=== PATIENT | female | born 2005 | race African-American/Black ===

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

== ENCOUNTER 2023-07-31 16:30 | Emergency (ER) | payer MEDICAID, OTHER ==
[~2023-07-31] VITALS: Ht 165.1 cm; Wt 60.0 kg
[2023-07-31 16:34] VITALS: O2SAT 99
[2023-07-31] MEDS ORDERED: KETOROLAC 60MG/2ML VIAL IM ONE (17:00)
[2023-07-31 18:21] VITALS: BP 110/74; PULSE 86; RESP 17; TEMP 98.5
== END 2023-07-31 19:04 | disposition home or self-care (01) ==
LOC: ER 16:30
DX: M79.622 Pain in left upper arm (principal); Z30.46 Encounter for surveillance of implantable subdermal contraceptive
CPT/HCPCS: 99285; 76881; 96372; J1885